=== PATIENT | female | born 1990 | race Caucasian/White ===

== ENCOUNTER 2022-08-19 23:25 | Emergency (ER) | payer BC, OTHER, SELFPAY ==
[2022-08-19 23:33] VITALS: BP 104/71; PULSE 69; RESP 16; TEMP 36.1; O2SAT 100
--- NOTE | 2022-08-20 00:01 | ED.GENADULT ---
HPI - General Adult General Chief complaint: Vaginal Bleeding Stated complaint: Vaginal bleeding Time Seen by Provider: 08/20/22 00:00 History of Present Illness HPI narrative: heavy vaginal bleeding, bright red. Irregular period past few months. PT also reports nausea and lightheaded. Bleeding started 1999- 2099 tonight. Pt also states, this is not period bleeding 32-year-old woman presenting with concern of vaginal bleeding. Has had what sounds like dysfunctional uterine bleeding over the last few months. Has apparently had hormonal evaluations with abnormal levels of testosterone and estrogen and thyroid among others. Is receiving medication in this regard. Tonight though started to have essentially painless heavy brighter red bleeding beginning about 3 hours prior to this evaluation. She is feeling a little nauseated and lightheaded. Has not had a fever. Does not describe dysuria frequency urgency. Is accompanied here by her supportive sister. Related Data Allergies Allergy/AdvReac Type Severity Reaction Status Date / Time No Known Drug Allergies Allergy Verified 08/19/22 23:33 Review of Systems Status of ROS: Reports: 6 or more systems reviewed and unremarkable except as noted in History and below PFSH [facility] Social History Smoking Status: Never smoker Non-prescribed substance use: denies use Exam Narrative: Exam Narrative: Pleasant. Of good energy. Quite alert. Carefully casually groomed. Skin is warm and dry. Extremities well perfused without edema. Is breathing easily. Lungs are clear. Heart with regular rate and rhythm; not tachycardic. Abdomen is soft normoactive bowel sounds is mildly tender to palpation in the low mid pelvis. No masses appreciated. Const: Vital Signs, click to edit/add: Vital Signs - 24 hr 08/19/22 23:33 Temperature 97.0 F L Pulse Rate [Left P ulse Oximeter] 69 Respiratory Rate 16 Blood Pressure [Ri ght Upper Arm] 104/71 Pulse Oximetry 100 Oxygen Delivery Me thod Room Air Documenting provider has reviewed patient's vital signs: yes Course Vital Signs Vital signs: Initial Vital Signs Temperature 97.0 F L 08/19/22 23:33 Temperature Source Temporal Artery Scan 08/19/22 23:33 Pulse Rate 69 08/19/22 23:33 Pulse Rhythm Regular 08/19/22 23:33 Respiratory Rate 16 08/19/22 23:33 Blood Pressure 104/71 08/19/22 23:33 Blood Pressure Mean 82 08/19/22 23:33 Blood Pressure Position Sitting 08/19/22 23:33 Pulse Oximetry 100 08/19/22 23:33 Oxygen Delivery Method Room Air 08/19/22 23:33 Vital Signs Temperature 97.0 F L 08/19/22 23:33 Pulse Rate 69 08/19/22 23:33 Respiratory Rate 16 08/19/22 23:33 Blood Pressure 104/71 08/19/22 23:33 Pulse Oximetry 100 08/19/22 23:33 Oxygen Delivery Method Room Air 08/19/22 23:33 Temperature 97.0 F L 08/19/22 23:33 Pulse Rate 69 08/19/22 23:33 Respiratory Rate 16 08/19/22 23:33 Blood Pressure 106/76 08/20/22 00:20 Pulse Oximetry 100 08/19/22 23:33 Oxygen Delivery Method Room Air 08/19/22 23:33 Medical Decision Making MDM Narrative Medical decision making narrative: Given degree of bleeding that she is describing would be prudent to monitor here. I would check urine HCG is well as a hemoglobin and likely repeat depending on progression of symptoms. Will be receiving a L normal saline after we discussed her symptoms of feeling lightheaded. clinical laboratory technologist is available. She has not had ultrasound of her pelvis hand as she has been struggling with this for some months seems reasonable to do here today. With treatment as delineated above felt improved. Seemed to have more energy. Hemoglobin reassuring. Bleeding lightened. Negative HCG and urinalysis only with blood. Discussed findings of ultrasound with senior technical analyst. Radiology over-read as below INDICATION: Heavy vaginal bleeding. Irregular menses. COMPARISON: None available. FINDINGS: Transvaginal ultrasound examination of the female pelvis was performed. The uterus is anteverted with no evidence of mass. It measures 7.5 x 3.3 x 4.1 cm. The endometrial lining is normal in thickness at 6 mm. There are several tiny cysts in the uterine lining, nonspecific. The ovaries are normal in appearance and size, the right measuring 3.5 x 1.9 x 2.3 cm and the left measuring 3.9 x 1.7 x 2.6 cm. There is normal color and pulse doppler flow in both ovaries. There is no sign of free fluid in the pelvis. IMPRESSION: Several tiny cysts in uterine lining, nonspecific. Otherwise normal ultrasound examination of the female pelvis using transvaginal technique. Discussed these findings with and her sister. I do not think any further intervention is necessary here today. Furthermore history is already hormonally/endocrine complicated. Would follow up with already established care. See patient discharge plan Lab Data Lab results reviewed: Yes I reviewed the patient's lab results Labs: Lab Results 08/20/22 08/20/22 Range/Units 00:07 00:40 WBC 9.53 (4.50-11.00) K/uL RBC 4.68 (4.00-5.20) m/uL Hgb 14.4 (12.0-16.0) gm/dL Hct 40.7 (33.0-51.0) % MCV 87 (80-100) fL MCH 31 (26-34) pg MCHC 35 (32-36) gm/dL RDW Coeff of Isabella 12.0 (11.5-15.5) % Plt Count 204 (140-440) K/uL Neut % (Auto) 60.9 (42.0-72.0) % Lymph % (Auto) 29.9 (20-44) % Ashley % (Auto) 6.6 (0.0-11.0) % Eos % (Auto) 1.8 (0.0-7.0) % Baso % (Auto) 0.2 (0.0-3.0) % Neut # (Auto) 5.80 (1.7-7.0) K/uL Lymph # (Auto) 2.85 (0.90-2.90) K/uL Ashley # (Auto) 0.60 (0.00-0.90) K/UL Eos # (Auto) 0.17 (0.00-0.50) K/uL Baso # (Auto) 0.02 (0.00-0.30) K/uL Urine Color Yellow (Yellow) Urine Appearance Clear (Clear) Urine pH 5.5 (5.0-8.5) Ur Specific [place] 1.025 (1.000-1.030) Urine Protein Negative (Negative) Urine Glucose (UA) Negative (Negative) Urine Ketones Negative (Negative) Urine Blood 2+ A (Negative) Urine Nitrite Negative (Negative) Urine Bilirubin Negative (Negative) Urine Urobilinogen 0.2 (0.2-1.0) Ur Leukocyte Esterase Negative (Negative) Urine RBC 5-10 A (0-2) Urine WBC 0-2 (0-5) Ur Squamous Epith Cells None (None-Few) Urine Bacteria None (None) Urine HCG, Qual Negative (Negative) Discharge Plan Discharge Clinical Impression: Dysfunctional uterine bleeding Patient Disposition: Home w/ Parent or Adult Condition: Improved Additional Instructions: Stay well-hydrated. Return for bleeding through 1 heavy pad an hour for 2 consecutive hours, uncontrolled pain, repeated vomiting, worsening lightheadedness, shortness of breath. Please take this copy of your ultrasound images and report and labs to follow-up with your assistant offset press operator/endocrine care. Follow Up/Referrals: Provider,Not a Local [Primary Care Provider] - Stand Alone Forms: [employer] Info Instructions
[2022-08-20 00:20] VITALS: BP 106/76
[2022-08-20 00:26] LABS: Appearance Urine Clear (Clear); Bilirubin Urine Negative (Negative); Blood Urine 2+ (Negative); Color Urine Yellow (Yellow); Glucose Urine Negative (Negative); Ketones Urine Negative (Negative); Leukocyte Esterase Urine Negative (Negative); Nitrite Urine Negative (Negative); Protein Urine Negative (Negative); Specific Gravity Urine 1.025 (1.000-1.030); Urobilinogen Urine 0.2 (0.2-1.0); pH Urine 5.5 (5.0-8.5)
--- NOTE | 2022-08-20 00:30 | CRLHL7_ITS ---
For Patients: As a result of the Century Cures Act, medical imaging exams and procedure reports are released immediately into your electronic medical record. You may view this report before your referring provider. If you have questions, please contact your health care provider. INDICATION: Heavy vaginal bleeding. Irregular menses. COMPARISON: None available. FINDINGS: Transvaginal ultrasound examination of the female pelvis was performed. The uterus is anteverted with no evidence of mass. It measures 7.5 x 3.3 x 4.1 cm. The endometrial lining is normal in thickness at 6 mm. There are several tiny cysts in the uterine lining, nonspecific. The ovaries are normal in appearance and size, the right measuring 3.5 x 1.9 x 2.3 cm and the left measuring 3.9 x 1.7 x 2.6 cm. There is normal color and pulse doppler flow in both ovaries. There is no sign of free fluid in the pelvis. IMPRESSION: Several tiny cysts in uterine lining, nonspecific. Otherwise normal ultrasound examination of the female pelvis using transvaginal technique. Dictated by Dg Gaines MD @ 08/20/2022 2:08:53 AM (Electronically Signed)
[2022-08-20 00:36] LABS: Ur HCG Qualitative* Negative (Negative); WBC Urine 0-2 (0-5)
[2022-08-20] MEDS: 0.9 % SODIUM CHLORIDE 1000 ml 1,000 ML IV (00:54)
[2022-08-20 00:55] LABS: Basophils Absolute Auto 0.02 K/uL (0.00-0.30); Basophils Percent Auto 0.2 % (0.0-3.0); Eosinophils Absolute Auto 0.17 K/uL (0.00-0.50); Eosinophils Percent Auto 1.8 % (0.0-7.0); Hematocrit 40.7 % (33.0-51.0); Hemoglobin* 14.4 gm/dL (12.0-16.0); Immature Granulocytes Abs Auto 0.06 K/uL (0.00-0.30); Immature Granulocytes Pct Auto 0.6 %; Lymphocytes Absolute Auto 2.85 K/uL (0.90-2.90); Lymphocytes Percent Auto 29.9 % (20-44); Mean Corpuscular HGB Conc 35 gm/dL (32-36); Mean Corpuscular Hemoglobin 31 pg (26-34); Mean Corpuscular Volume 87 fL (80-100); Monocytes Percent Auto 6.6 % (0.0-11.0); Neutrophils Percent Auto 60.9 % (42.0-72.0); Platelet Count* 204 K/uL (140-440); Red Blood Count 4.68 m/uL (4.00-5.20); White Blood Count* 9.53 K/uL (4.50-11.00)
[2022-08-20 01:03] LABS: Slide Review Reflex No
== END 2022-08-20 02:29 | disposition home or self-care (01) ==
PROVIDERS: Emergency Provider Family Medicine
DX: N93.8 Other specified abnormal uterine and vaginal bleeding (principal)
CPT/HCPCS: 36415; 76830; 81001; 81025; 85025; 96360; 99284; J7030